=== PATIENT | male | born 1965 | race Caucasian/White ===

== ENCOUNTER → 2024-03-01 | Outpatient (CLI) | payer BC ==
[2024-03-01 08:10] LABS: African American GFR (CKD) >90 (>60 ml/min/1.73 sqM); Blood Urea Nitrogen 14 mg/dL (9-20); Non-African American GFR(CKD) >90 (>60 ml/min/1.73 sqM)
--- NOTE | 2024-03-01 14:51 | CT ---
EXAMINATION TYPE: CT urogram wo/w con CT DLP: 4026 mGycm, Automated exposure control for dose reduction was used. DATE OF EXAM: 03/01/2024 9:11 AM COMPARISON: None CLINICAL INDICATION:Male, 58 years old with history of R31.9 HEMATURIA, UNSPECIFIED; PHH, Hematuria, unspecified TECHNIQUE: Urogram of the abdomen and pelvis was performed before and after the administration of 100 cc of IV c ontrast Isovue 300 contrast. Delayed imaging was performed. Coronal and sagittal reformats were perfo rmed. One or more CT dose reduction strategies were utilized during this examination. 2D and 3D recon structions are performed to assist visualization of the urinary tract on a separate workstation. FINDINGS: GENITOURINARY: RIGHT KIDNEY AND URETER: No calculi. No hydronephrosis or hydroureter. 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 Superior pole 1.9 cm nonenhancing cyst. Additi onal subcentimeter nonenhancing cysts. No urothelial lesions: no filling defect, dilation, stricture or wall thickening. LEFT KIDNEY AND URETER: No calculi. No hydronephrosis or hydroureter. Lateral mid kidney 2.5 cm nonen hancing cyst. Additional posterior left mid kidney 1.3 cm nonenhancing cyst. Additional subcentimeter nonenhancing cyst. No urothelial lesions: no filling defect, dilation, stricture or wall thickening. URINARY BLADDER: Moderately well distended. Contrast fills half the portion of the dependent urinary bladder. Normal, no calculi, mass or other lesions. REPRODUCTIVE: Unremarkable. ABDOMEN LIVER: Diffusely hypoattenuating, consistent with hepatic steatosis. Enlarged measuring 24.0 cm in CC dimension. GALLBLADDER AND BILE DUCTS: Cholelithiasis demonstrated. No biliary ductal dilatation. PANCREAS: Unremarkable. SPLEEN: Enlarged measuring 16.9 cm in CC dimension. ADRENAL GLANDS: Unremarkable. STOMACH AND BOWEL: No focal bowel wall thickening or surrounding inflammatory changes. Redundant sigm oid colon. The appendix is within normal limits.. No evidence of bowel obstruction. PERITONEUM: No evidence of pneumoperitoneum, free fluid, or adenopathy. VASCULATURE: No aortic aneurysm. MUSCULOSKELETAL: No acute osseous abnormalities. Mild multilevel degenerative disc disease. SOFT TISSUE/ABDOMINAL WALL: Small fat filled left inguinal hernia. LOWER CHEST: No significant findings. IMPRESSION: 1. No CT evidence of urolithiasis or renal/urothelial neoplasm. 2. Hepatosplenomegaly. 3. Hepatic steatosis. 4. Cholelithiasis.
== END | disposition home or self-care (01) ==
LOC: RADCTMAIN 07:15
PROVIDERS: ATTEND Family Medicine
DX: R31.9 Hematuria, unspecified (principal); K76.0 Fatty (change of) liver, not elsewhere classified; K80.20 Calculus of gallbladder without cholecystitis without obstruction; R16.2 Hepatomegaly with splenomegaly, not elsewhere classified
CPT/HCPCS: 82565; 84520; 74178; 74400; Q9967

== ENCOUNTER → 2024-05-11 | Day surgery (SDC) | payer BC ==
[2024-05-09 09:31] VITALS: BMI 34.8
[~2024-05-11] MED LIST: GLYCOPYRROLATE 0.2 MG/ML 2 ML VIAL ONE; LIDOCAINE 1% (10MG/ML) FOR IV START INTRADERMA PRN; LIDOCAINE 1% INJ 10MG/ML (20 ML MDV) ONE; MIDAZOLAM 2 MG/2 ML VIAL IV PRN; MIDAZOLAM 2 MG/2 ML VIAL ONE; NEOSTIGMINE 1 MG/ML 10 ML VIAL ONE; PROPOFOL 10 MG/ML 20 ML VIAL IV ONE; ROCURONIUM 10 MG/ML (5 ML VIAL) IV ONE; SUCCINYLCHOLINE CHLORIDE 200 MG/10 ML VIAL IV ONE; fentaNYL (PF) 50 MCG/ML 2 ML AMP ONE
[2024-05-11] MEDS: IV FLUID CONTINUATION 1,000 ML IV ONE (10:09)
[2024-05-11 10:31] LABS: Glucose,Whole Blood 138 mg/dL (70-110)
[2024-05-11] MEDS: LACTATED RINGERS 1,000 ML IV SCH (10:36)
[2024-05-11] MEDS: ACETAMINOPHEN TAB 500 MG TAB PO PRN (10:36)
[2024-05-11] MEDS: ONDANSETRON 4 MG/2 ML VIAL IVP ONE (10:37)
[2024-05-11] MEDS: DEXAMETHASONE SOD PHOSPHATE 4 MG/ML 1 ML VIAL IV ONE (10:37)
[2024-05-11] MEDS: METOCLOPRAMIDE 5 MG/ML 2 ML VIAL IVP STA (10:37)
[2024-05-11] MEDS: HEPARIN SODIUM,PORCINE 5,000 UNIT/ML 1 ML VIAL SQ PRN (10:37)
[2024-05-11] MEDS: FAMOTIDINE 20 MG/2 ML VIAL IV STA (10:48)
[2024-05-11] MEDS: LIDOCAINE 1%-EPI 1:100,000 20 ML VIAL SQ ONE ×2 (11:02)
[2024-05-11 11:07] LABS: African American GFR (CKD) >90 (>60 ml/min/1.73 sqM); Anion Gap 6 mmol/L; Blood Urea Nitrogen 12 mg/dL (9-20); Calcium 8.9 mg/dL (8.4-10.2); Carbon Dioxide 29 mmol/L (22-30); Chloride 106 mmol/L (98-107); Glucose 136 mg/dL (74-99); Non-African American GFR(CKD) >90 (>60 ml/min/1.73 sqM); Potassium 4.5 mmol/L (3.5-5.1); Sodium 141 mmol/L (137-145)
[2024-05-11] MEDS: LACTATED RINGERS 1,000 ML IV ONE ×2 (11:52→14:49)
--- NOTE | 2024-05-11 12:19 | P.OP ---
Date of Procedure: 05/11/24 Preoperative Diagnosis: cholelithiasis Postoperative Diagnosis: Cholelithiasis Procedure(s) Performed: Laparoscopic cholecystectomy Anesthesia: PAYAL Surgeon: Sebastián Ansari Estimated Blood Loss (ml): 5 Pathology: other (Gallbladder) Condition: stable Disposition: PACU Description of Procedure: The patient's placed on the operative table in the supine position. The patient received general endotracheal anesthesia. His abdomen was prepped with sterile fashion. An infraumbilical skin incision was made. The Veress needles positioned into the peritoneal cavity. Position of the Veress needle was confirmed with a positive drop test. The abdomen was then insufflated. After adequate insufflation a 5 mm trochars placed. Cavity. Next the laparoscope placed. Cavity. A 8 mm robotic trocar was placed in the left mid abdomen. A a 8 mm robotic trochars placed in the right lateral position and then the right mid abdomen position. The patient was then placed in reverse Trendelenburg. Patient with was docked to the robot. There were adhesions to the dome of the gallbladder. These were lysed using the hook cautery. The gallbladder fundus was then grasped with a pro-grasp grasper. And then the gallbladder was retracted cephalad. There were adhesions along the body of the gallbladder. These were lysed with sharp dissection. The fundus of the gallbladder was then grasped in the lateral traction was placed in the fundus. And then using blunt and sharp dissection the cystic duct was identified. Using firing applied the cystic duct was identified. A critical view of safety was achieved. The cystic duct was seen entering the common bile duct the common h epatic duct was seen. The cystic duct had been completely dissected and then the cystic duct was clipped and divided. The cystic artery was then identified and then clipped and divided. The gallbladder was then removed from liver bed using left cautery. The gallbladder was placed in a 5 mm Endo Catch bag. The liver bed was hemostasis. There is no bleeding seen. The abdomen was irrigated. No bleeding was seen. The patient was then undocked from the robot. The gallbladder was extracted through the umbilical port site. The umbilical port site was then closed with 0 Ethibond suture. The trochars withdrawn. Skin was closed interrupted 3-0 Monocryl suture. Dermabond dressing applied. Patient top she will was sent to recovery room in stable condition.
[2024-05-11 12:21] VITALS: TEMP 97.7
[2024-05-11] MEDS: HYDROmorphone 0.5 MG/0.5 ML SYRINGE IVP PRN (12:25)
[2024-05-11 12:36] LABS: Glucose,Whole Blood 192 mg/dL (70-110)
[2024-05-11 14:30] LABS: Glucose,Whole Blood 192 mg/dL (70-110)
[2024-05-11] MEDS: fentaNYL (PF) 50 MCG/ML 2 ML AMP IVP PRN (14:57)
[2024-05-11 15:02] LABS: Anisocytosis Slight; Basophils % (A) 0 %; Eosinophils # (A) 0.1 k/uL (0-0.7); Eosinophils % (A) 1 %; HCT 42.4 % (39.0-53.0); HGB 14.7 gm/dL (13.0-17.5); Hyperchromasia Slight; Lymphocytes # (A) 0.8 k/uL (1.0-4.8); Lymphocytes % (A) 8 %; MCH 26.7 pg (25.0-35.0); MCHC 34.8 g/dL (31.0-37.0); MCV 76.7 fL (80.0-100.0); Mean Platelet Volume 8.2; Microcytosis Slight; Monocytes # (A) 0.2 k/uL (0-1.0); Monocytes % (A) 2 %; Neutrophils # (A) 8.7 k/uL (1.3-7.7); Neutrophils % (A) 89 %; Platelet Count 146 k/uL (150-450); Poikilocytosis Moderate; RBC 5.52 m/uL (4.30-5.90); RDW 16.4 % (11.5-15.5); WBC 9.8 k/uL (3.8-10.6)
[2024-05-11] MEDS: SODIUM CHLORIDE 0.9% 1,000 ML IV ONE (16:04)
[2024-05-11 16:10] LABS: Glucose,Whole Blood 171 mg/dL (70-110)
[2024-05-11 16:44] VITALS: BP 163/84; PULSE 95; RESP 15
== END | disposition home or self-care (01) ==
LOC: OR 09:48
PROVIDERS: ATTEND Surgery
DX: K80.10 Calculus of gallbladder with chronic cholecystitis without obstruction (principal); I10 Essential (primary) hypertension; E78.5 Hyperlipidemia, unspecified; J45.909 Unspecified asthma, uncomplicated; G47.33 Obstructive sleep apnea (adult) (pediatric); E11.9 Type 2 diabetes mellitus without complications; Z79.51 Long term (current) use of inhaled steroids; Z79.84 Long term (current) use of oral hypoglycemic drugs; Z79.899 Other long term (current) drug therapy
CPT/HCPCS: 80048; 85025; 88304